=== PATIENT | male | born 1990 | race Caucasian/White ===

== ENCOUNTER 2019-08-22 20:11 | Emergency (ER) | payer SELFPAY ==
[~2019-08-22] VITALS: Ht 172.7 cm; Wt 90.7 kg
--- NOTE | 2019-08-22 20:11 | NUR ---
Placed in room 6 . Placed on surveillance monitor, blood pressure machine and pulse oximeter. To gown for exam. Side rails up.
--- NOTE | 2019-08-22 20:14 | NUR ---
Pt placed on 5150 hold per PET team. Reports that he was in holding cell and talking/responding to unseen persons. Reports that he was verbally threatening half-way personnel. A&O x1.
[2019-08-22 20:15] VITALS: BP_SYST 153
--- NOTE | 2019-08-22 20:15 | NUR ---
ER at bedside examining patient.
[2019-08-22] MEDS ORDERED: LORazepam 2 MG/ML VIAL IVP ONE (20:30)
[2019-08-22] MEDS ORDERED: HALOPERIDOL LACTATE 5 MG/ML VIAL IM ONE (20:30)
--- NOTE | 2019-08-22 20:30 | NUR ---
Pt currently having audio visual hallucinations. Pt irate and yelling statements. Pt continued to be on cardiac/O2 monitor. Will cont. to monitor.
--- NOTE | 2019-08-22 20:33 | NUR ---
Pt medicated with Halodol per MD order. Tolerated well. Will cont.to monitor.
[2019-08-22] MEDS ORDERED: HALOPERIDOL LACTATE 5 MG/ML VIAL ONE (20:39)
[2019-08-22 20:53] LABS: BASOPHILS # (AUTO) 0.1 K/uL (0.0-0.2); BASOPHILS % (AUTO) 0.8 % (0.0-2.0); EOSINOPHILS % (AUTO) 0.1 % (0.0-4.0); HEMATOCRIT 47.6 % (36-54); HEMOGLOBIN 16.7 g/dL (14.0-18.0); LYMPHOCYTES # (AUTO) 1.7 K/uL (1.0-5.5); LYMPHOCYTES % (AUTO) 22.9 % (20.5-51.5); MEAN CORPUSCULAR HEMOGLOBIN 31 pg (27-31); MEAN CORPUSCULAR HGB CONC 35 % (32-36); MEAN CORPUSCULAR VOLUME 88 fL (79.0-98.0); MONOCYTES # (AUTO) 0.9 K/uL (0.0-1.0); MONOCYTES % (AUTO) 11.6 % (1.7-9.3); NEUTROPHILS # (AUTO) 4.7 K/uL (1.8-7.7); NEUTROPHILS % (AUTO) 64.6 % (40.0-70.0); PLATELET COUNT (AUTO) 361 K/uL (130-430); RED BLOOD CELL COUNT(AUTO) 5.39 MIL/uL (4.2-6.2); RED CELL DISTRIBUTION WIDTH 14.4 % (9.0-15.0); WHITE BLOOD COUNT (AUTO) 7.4 K/uL (4.8-10.8)
[2019-08-22 21:04] LABS: ANION GAP 12 (5-15); CALCIUM 9.9 mg/dL (8.4-11.0); CHLORIDE 99 mmol/L (98-107); CREATININE 1.46 mg/dL (0.55-1.30); GLUCOSE 104 mg/dL (70-99); POTASSIUM 3.3 mmol/L (3.5-5.1); SODIUM SERUM 139 mmol/L (136-145); UREA NITROGEN, BLOOD 14 mg/dL (8-21)
[2019-08-22 21:07] LABS: GFR AFRICAN AMERICAN 75 mL/min (>90)
[2019-08-22 21:11] LABS: ACETONE, SERUM NEGATIVE (NEGATIVE)
[2019-08-22] MEDS ORDERED: MAGNESIUM SULFATE 50 ML IV ONE (21:15)
[2019-08-22 21:19] LABS: INR 1.1 (0.80-1.20); PROTHROMBIN TIME 10.7 SECS (9.5-12.5)
[2019-08-22 21:21] LABS: ALANINE AMINOTRANSFERASE 36 U/L (12-78); ALBUMIN 5.1 g/dL (3.4-4.8); ASPARTATE AMINOTRANSFERASE 27 U/L (10-37); FREE T4 (FREE THYROXINE) 1.4 ng/dl (0.8-1.5); THYROID STIMULATING HORMONE 0.96 uIu/mL (0.36-3.74); TOTAL BILIRUBIN 0.8 mg/dL (0.0-1.0)
[2019-08-22 21:26] LABS: ALCOHOL, BLOOD < 3 mg/dL (<10)
--- NOTE | 2019-08-22 21:58 | NUR ---
Pt resting comfortably in bed, no signs of acute distress. Continous cardiac and O2 monitoring.
--- NOTE | 2019-08-22 22:00 | NUR ---
Pt ambulated with steady gait to restroom. NO signs of acute distress. Will cont. to monitor.
--- NOTE | 2019-08-22 23:00 | NUR ---
Pt resting comfortably in bed, no signs of acute distress. Will cont. to monitor.
[2019-08-22 23:10] LABS: ACETAMINOPHEN < 1 ug/mL (1-30)
[2019-08-22 23:29] LABS: CKMB RELATIVE INDEX 0.4 (0.0-2.9); CREATINE KINASE MB 2.9 ng/mL (0-3.6)
[2019-08-23] MEDS ORDERED: NACL 0.9% 1,000 ML IV ONE
--- NOTE | 2019-08-23 | NUR ---
Pt resting comfortably in bed, no signs of acute distress. Will cont. to monitor.
[2019-08-23 00:24] LABS: BILIRUBIN,URINE 1+ (NEGATIVE); BLOOD, URINE NEGATIVE (NEGATIVE); CLARITY/URINE TURBID (CLEAR); COLOR,URINE YELLOW (YELLOW); GLUCOSE,URINE NEGATIVE (NEGATIVE); KETONES,URINE 1+ (NEGATIVE); LEUKOCYTE ESTERASE ,URINE NEGATIVE (NEGATIVE); NITRITE, URINE NEGATIVE (NEGATIVE); PH,URINE 5.5 (5.0-8.0); PROTEIN URINE 1+ (NEGATIVE); UROBILINOGEN,URINE 0.2 (0.2-1.0)
[2019-08-23 00:31] LABS: BARBITURATE, URINE NEGATIVE (NEG <=200); BENZODIAZEPINE, URINE POSITIVE (NEG <=150); CANNABINOID, URINE POSITIVE (NEG <=50); COCAINE, URINE NEGATIVE (NEG <=150); METHAMPHETAMINES SCREEN,URINE POSITIVE (NEG <=500); URINE AMPHETAMINE POSITIVE (NEG <=500); URINE METHADONE NEGATIVE (NEG <=200)
[2019-08-23 00:32] LABS: OPIATE, URINE NEGATIVE (NEG <=100); PHENCYCLIDINE SCREEN,URINE NEGATIVE (NEG <=25); UR TRICYCLIC ANTIDEPRESSANTS NEGATIVE (NEG <=300); URINE OXYCODONE SCREEN NEGATIVE (NEG <=100); URINE PROPOXYPHENE SCREEN NEGATIVE (NEG <=300)
[2019-08-23 00:43] LABS: BACTERIA,URINE FEW /HPF (None Seen); HYALINE CASTS, URINE 0-10 /LPF (None Seen); RBC,URINE 0-3 /HPF (0-3); URINE AMORPHOUS URATE 1+ /HPF (None Seen); WBC,URINE 0-3 /HPF (0-3)
--- NOTE | 2019-08-23 01:00 | NUR ---
Pt resting comfortably in bed, no signs of acute distress. Will cont. to monitor.
--- NOTE | 2019-08-23 02:00 | NUR ---
Pt resting comfortably in bed, no signs of acute distress. Will cont. to monitor.
--- NOTE | 2019-08-23 03:00 | NUR ---
Pt sleeping in bed, no signs of acute distress. Will cont. to monitor.
--- NOTE | 2019-08-23 04:13 | NUR ---
Pt resting comfortably in bed, no signs of acute distress. Will cont. to monitor.
--- NOTE | 2019-08-23 05:30 | NUR ---
Dr. Hardwick at bedside evaluating pt.
--- NOTE | 2019-08-23 05:45 | NUR ---
Per Dr. Hunter he states that pt is ok to go home within a few hours and the 5150 hold is lifted. Paperwork in chart.
--- NOTE | 2019-08-23 06:29 | NUR ---
Provided pt with water. Pt able to ambulate with steady gait to bathroom. No signs of acute distress
--- NOTE | 2019-08-23 07:01 | NUR ---
breakfast tray ordered.
--- NOTE | 2019-08-23 07:15 | NUR ---
Patient is sleeping comfortably in bed, no signs and symptoms of respiratory distress.
--- NOTE | 2019-08-23 07:57 | NUR ---
Left a voicemail for Maryam at [phone], no answer.
[2019-08-23 08:55] VITALS: BP_SYST 108
--- NOTE | 2019-08-23 08:56 | NUR ---
Discontinued IV as ordered by Dr. Pisano, catheter intact. Patient tolerated the procedure well.
--- NOTE | 2019-08-23 08:57 | NUR ---
Patient given written and verbal discharge instructions and verbalizes understanding. ER MD discussed with patient the results and treatment provided. Patient in stable condition. ID arm band removed. No Rx of given. Patient educated on pain management and to follow up with PMD. Pain Scale 0/10. Opportunity for questions provided and answered. Medication side effect fact sheet provided.
== END 2019-08-23 08:57 | disposition home or self-care (01) ==
LOC: SED 20:11
DX: R45.1 Restlessness and agitation (principal); F15.90 Other stimulant use, unspecified, uncomplicated; N28.9 Disorder of kidney and ureter, unspecified; F29 Unspecified psychosis not due to a substance or known physiological condition
CPT/HCPCS: 36415; 71045; 80053; 80307; 81000; 82009; 82550; 82553; 84439; 84443; 84484; 85025; 85610; 85730; 93005 ×2; 96365; 96366; 96372; 96374; 99285; G0480; G0481; G0482; J1630; J2060; J3475; J7030